=== PATIENT | male | born 1950 | race Caucasian/White ===

== ENCOUNTER 2019-02-24 07:30 | Inpatient (IN) | payer MEDICARE ==
[~2019-02-24] VITALS: Ht 177.8 cm; Wt 131.0 kg
[~2019-02-24 07:30] MED LIST: ALBU90OI INH; ASPI81CH PO; ATOR10; ATOR80 PO; Amaryl4 MG PO; CEPH500 PO; EFFIENT10 MG PO; GABA600 PO; GEMF600 PO; HYDACE5 PO; INSULANPEN SC; LEVFLO500 PO; LEVSOD100 PO; METF500 PO; METO100ER PO; METO50ER PO; Novolog100 UNIT/2 SC; Prozac20 MG PO; RAMI5 PO; SIMV40 PO; [UNRECOGNIZED DRUG - OTHER]
[2019-02-25 04:00] LABS: BASOPHILS ABSOLUTE AUTO 0.04 K/mm3 (0.00-0.23); BASOPHILS PERCENT AUTO 0 % (0-2); EOSINOPHILS ABSOLUTE AUTO 0.25 K/mm3 (0.00-0.68); EOSINOPHILS PERCENT AUTO 2 % (0-6); Hematocrit 34.2 % (37.0-53.0); Hemoglobin 10.9 g/dL (13.5-17.5); IMMATURE GRAN ABSOLUTE AUTO 0.05 K/mm3 (0.00-0.10); IMMATURE GRAN PERCENT AUTO 0 % (0-1); LYMPHOCYTES ABSOLUTE AUTO 3.29 K/mm3 (0.84-5.20); LYMPHOCYTES PERCENT AUTO 28 % (21-46); MONOCYTES ABSOLUTE AUTO 0.94 K/mm3 (0.16-1.47); MONOCYTES PERCENT AUTO 8 % (4-13); Mean Corpuscular HGB Conc 31.9 g/dL (31.5-36.5); Mean Corpuscular Volume 97 fL (80-100); NEUTROPHILS PERCENT AUTO 62 % (41-73); Platelet Count 159 K/mm3 (150-400); RDW Coefficient Variation 13.4 % (11.7-14.2); RDW Standard Deviation 47.8 fL (35.1-46.3); Red Blood Cell Count 3.52 M/mm3 (4.30-5.90); White Blood Cell Count 11.87 K/mm3 (4.00-11.30)
[2019-02-25 04:16] LABS: Anion Gap 5 mmol/L (6-16); Blood Urea Nitrogen 19 mg/dL (8-24); Bun/Creatinine Ratio 25.6 (12.0-20.0); CO2, Blood 29 mmol/L (21-32); Chloride, Blood 106 mmol/L (98-108); Creatinine, Blood 0.74 mg/dL (0.60-1.20); Glomerular Filtration Rate >60 (60-); Glucose, Blood 117 mg/dL (70-99); Sodium, Blood 140 mmol/L (136-145)
[2019-02-25] MEDS ORDERED: Percocet 5-3251 EACH PO (11:05)
[2019-02-25] MEDS ORDERED: XARELTO10 MG PO (11:06)
== END 2019-02-25 13:00 | disposition home or self-care (01) | DRG 470 ==
LOC: SURS 08:49 → PRE IP 09:00 → SURS 15:37
PROVIDERS: ADMIT Orthopaedic Surgery
PROC: 0SR903Z Replacement of Right Hip Joint with Ceramic Synthetic Substitute, Open Approach (ICD-10-PCS; principal; 2019-02-24 10:00)
DX: M16.11 Unilateral primary osteoarthritis, right hip (principal); Z68.41 Body mass index [BMI] 40.0-44.9, adult; E66.01 Morbid (severe) obesity due to excess calories; M17.0 Bilateral primary osteoarthritis of knee; E11.9 Type 2 diabetes mellitus without complications; I10 Essential (primary) hypertension; E78.5 Hyperlipidemia, unspecified; Z87.891 Personal history of nicotine dependence
CPT/HCPCS: 36415; 72170; 80048; 82947; 85025; 86850; 86900; 86901; 88300; 97110; 97116; 97161; 97530; C1776; J0171; J0690; J0735; J1815; J1817; J1885; J2270; J2370; J2405; J2704; J2765; J2795; J3010; J7120

== ENCOUNTER 2019-03-09 23:48 | Inpatient (IN) | payer MEDICARE ==
[~2019-03-09] VITALS: Ht 177.8 cm; Wt 136.5 kg
[~2019-03-09 23:48] MED LIST changes: +Percocet 5-3251 EACH PO; +XARELTO10 MG PO
[2019-03-10 01:22] LABS: BASOPHILS ABSOLUTE AUTO 0.04 K/mm3 (0.00-0.23); BASOPHILS PERCENT AUTO 0 % (0-2); EOSINOPHILS ABSOLUTE AUTO 0.07 K/mm3 (0.00-0.68); EOSINOPHILS PERCENT AUTO 0 % (0-6); Hematocrit 32.9 % (37.0-53.0); Hemoglobin 10.5 g/dL (13.5-17.5); IMMATURE GRAN ABSOLUTE AUTO 0.16 K/mm3 (0.00-0.10); IMMATURE GRAN PERCENT AUTO 1 % (0-1); LYMPHOCYTES ABSOLUTE AUTO 0.59 K/mm3 (0.84-5.20); LYMPHOCYTES PERCENT AUTO 3 % (21-46); MONOCYTES ABSOLUTE AUTO 0.55 K/mm3 (0.16-1.47); MONOCYTES PERCENT AUTO 3 % (4-13); Mean Corpuscular HGB 30.9 pg (26.0-34.0); Mean Corpuscular HGB Conc 31.9 g/dL (31.5-36.5); Mean Corpuscular Volume 97 fL (80-100); NEUTROPHILS ABSOLUTE AUTO 19.47 K/mm3 (1.96-9.15); NEUTROPHILS PERCENT AUTO 93 % (41-73); Platelet Count 429 K/mm3 (150-400); RDW Coefficient Variation 13.3 % (11.7-14.2); RDW Standard Deviation 47.5 fL (35.1-46.3); White Blood Cell Count 20.88 K/mm3 (4.00-11.30)
[2019-03-10 01:34] LABS: Alanine Aminotransfer (ALT/SGP 36 U/L (12-78); Albumin, Blood 2.9 g/dL (3.4-5.0); Albumin/Globulin Ratio 0.7 (0.8-1.8); Alk Phos 129 U/L (50-136); Anion Gap 10 mmol/L (6-16); Aspartate Aminotrans (AST/SGOT 21 U/L (12-37); Bilirubin, Total 0.6 mg/dL (0.1-1.0); Blood Urea Nitrogen 17 mg/dL (8-24); Bun/Creatinine Ratio 16.8 (12.0-20.0); CO2, Blood 24 mmol/L (21-32); Chloride, Blood 104 mmol/L (98-108); Creatinine, Blood 1.01 mg/dL (0.60-1.20); Globulin, Blood 4.3 g/dL (2.2-4.0); Glomerular Filtration Rate >60 (60-); Glucose, Blood 307 mg/dL (70-99); Potassium, Blood 4.2 mmol/L (3.5-5.5); Sodium, Blood 138 mmol/L (136-145); Total Protein, Blood 7.2 g/dL (6.4-8.2)
[2019-03-10 06:04] LABS: Source, Urine Clean Catch
[2019-03-10 06:12] LABS: Bilirubin, Urine Neg (Neg); Blood, Urine 5+ (Neg); Glucose Qualitative, Urine Neg (Neg); Ketones, Urine Neg (Neg); Leukocyte Esterase, Urine 2+ (Neg); Nitrite, Urine Neg (Neg); Protein, Urine 2+ (Neg); Urobilinogen, Urine NORM (Normal)
[2019-03-10 06:25] LABS: Appearance, Urine Hazy (Clear); Color, Urine Yellow (P-Yellow)
[2019-03-10 06:28] LABS: White Blood Cells, Urine 25-50 /hpf (0-5)
[2019-03-10 06:29] LABS: Squamous Epithelial Cells Mod /hpf (Few)
[2019-03-10 06:30] LABS: Bacteria Few /hpf
[2019-03-10 06:34] LABS: Calcium Oxalate Crystals Mod /hpf; Renal Epithelial Rare /hpf ({null, 0-Rare}); Transitional Epithelial Cells Few /hpf ({null, 0-Rare})
[2019-03-10] MEDS ORDERED: Lopressor 25 mg25 MG PO (07:22)
[2019-03-10] MEDS ORDERED: METF500C PO (07:24)
[2019-03-10 08:03] LABS: Alanine Aminotransfer (ALT/SGP 32 U/L (12-78); Albumin, Blood 2.2 g/dL (3.4-5.0); Albumin/Globulin Ratio 0.6 (0.8-1.8); Alk Phos 93 U/L (50-136); Anion Gap 8 mmol/L (6-16); Aspartate Aminotrans (AST/SGOT 29 U/L (12-37); Bilirubin, Total 0.6 mg/dL (0.1-1.0); Blood Urea Nitrogen 18 mg/dL (8-24); Bun/Creatinine Ratio 16.5 (12.0-20.0); CO2, Blood 22 mmol/L (21-32); Calcium, Blood 7.7 mg/dL (8.5-10.1); Chloride, Blood 111 mmol/L (98-108); Creatinine, Blood 1.09 mg/dL (0.60-1.20); Globulin, Blood 3.4 g/dL (2.2-4.0); Glomerular Filtration Rate >60 (60-); Glucose, Blood 196 mg/dL (70-99); Potassium, Blood 4.2 mmol/L (3.5-5.5); Sodium, Blood 141 mmol/L (136-145); Total Protein, Blood 5.6 g/dL (6.4-8.2)
[2019-03-11 05:43] LABS: Vancomycin, Trough 9.1 ug/mL (5.0-10.0)
[2019-03-11 08:27] LABS: BASOPHILS ABSOLUTE AUTO 0.06 K/mm3 (0.00-0.23); BASOPHILS PERCENT AUTO 0 % (0-2); EOSINOPHILS PERCENT AUTO 1 % (0-6); Hematocrit 30.6 % (37.0-53.0); Hemoglobin 9.7 g/dL (13.5-17.5); IMMATURE GRAN ABSOLUTE AUTO 0.08 K/mm3 (0.00-0.10); IMMATURE GRAN PERCENT AUTO 1 % (0-1); LYMPHOCYTES PERCENT AUTO 15 % (21-46); MONOCYTES ABSOLUTE AUTO 1.11 K/mm3 (0.16-1.47); MONOCYTES PERCENT AUTO 7 % (4-13); Mean Corpuscular HGB 30.7 pg (26.0-34.0); Mean Corpuscular HGB Conc 31.7 g/dL (31.5-36.5); Mean Corpuscular Volume 97 fL (80-100); Mean Platelet Volume 9.4 fL (9.1-12.4); NEUTROPHILS ABSOLUTE AUTO 11.44 K/mm3 (1.96-9.15); NEUTROPHILS PERCENT AUTO 76 % (41-73); Platelet Count 356 K/mm3 (150-400); RDW Coefficient Variation 13.4 % (11.7-14.2); RDW Standard Deviation 47.6 fL (35.1-46.3); Red Blood Cell Count 3.16 M/mm3 (4.30-5.90); White Blood Cell Count 15.09 K/mm3 (4.00-11.30)
[2019-03-11 09:09] LABS: Anion Gap 7 mmol/L (6-16); Blood Urea Nitrogen 10 mg/dL (8-24); Bun/Creatinine Ratio 15.6 (12.0-20.0); CO2, Blood 25 mmol/L (21-32); Calcium, Blood 8.9 mg/dL (8.5-10.1); Chloride, Blood 106 mmol/L (98-108); Creatinine, Blood 0.64 mg/dL (0.60-1.20); Glomerular Filtration Rate >60 (60-); Glucose, Blood 194 mg/dL (70-99); Sodium, Blood 138 mmol/L (136-145)
[2019-03-11] MEDS ORDERED: LACT PO (12:50)
[2019-03-11] MEDS ORDERED: DOXY100 PO (12:51)
[2019-06-13] MEDS ORDERED: FLUOXETINE HCL60 MG PO (12:55)
[2019-06-13] MEDS ORDERED: ALBU90OI INH (12:57)
[2019-06-13] MEDS ORDERED: TUMS500 MG PO (12:59)
[2019-06-13] MEDS ORDERED: SILD25T PO (13:00)
== END 2019-03-11 13:17 | disposition home or self-care (01) | DRG 871 ==
LOC: ER 23:48 → ICUW 03-10 03:21 → ERHOLD 03-10 03:21 → ICUW 03-10 12:45 → MEDS 03-10 21:55 → ENPENDDIS 03-11 10:42 → MEDS 03-11 13:17
PROVIDERS: Emergency Medicine; Internal Medicine; ADMIT Hospitalist
PROC: 5A1935Z Respiratory Ventilation, Less than 24 Consecutive Hours (ICD-10-PCS; principal; 2019-03-10)
DX: A41.9 Sepsis, unspecified organism (principal); R65.21 Severe sepsis with septic shock; N39.0 Urinary tract infection, site not specified; Z68.41 Body mass index [BMI] 40.0-44.9, adult; E11.65 Type 2 diabetes mellitus with hyperglycemia; E66.01 Morbid (severe) obesity due to excess calories; I25.10 Atherosclerotic heart disease of native coronary artery without angina pectoris; F32.9 Major depressive disorder, single episode, unspecified; I10 Essential (primary) hypertension; E03.9 Hypothyroidism, unspecified; Z79.4 Long term (current) use of insulin; E78.5 Hyperlipidemia, unspecified; Z95.5 Presence of coronary angioplasty implant and graft; Z87.891 Personal history of nicotine dependence; Z96.641 Presence of right artificial hip joint
CPT/HCPCS: 36415; 51798; 71045; 72193; 80048; 80053; 80202; 81001; 82947; 83605; 84145; 85025; 87040; 87086; 93005; 93010; 96361-59; 96374-59; 96375-59; 99285-25; A9270; J1650; J2543; J3010; J3370; J7030; J7050; J7120; Q9967

== ENCOUNTER 2019-06-28 06:12 | Day surgery (SDC) | payer MEDICARE ==
[~2019-06-28] VITALS: Ht 177.8 cm; Wt 131.7 kg
[~2019-06-28 06:12] MED LIST changes: +DOXY100 PO; +FLUOXETINE HCL60 MG PO; +LACT PO; +Lopressor 25 mg25 MG PO; +METF500C PO; +SILD25T PO; +TUMS500 MG PO
--- NOTE | 2019-06-28 06:55 | NUR ---
Ambulatory in Day Surgery Surgical site prepped with 2% Chlorhexidine cloth wipe. Lungs clear T/O to Auscultation. Pre-Op teaching done. Pt verbalizes understanding. Patient confirms NPO status and agrees with scheduled surgery. History, Chart, Medications and Allergies reviewed before start of procedure.
[2019-06-28] MEDS ORDERED: Mupirocin22 GM TOP (07:19)
--- NOTE | 2019-06-28 07:40 | NUR ---
PATIENT APPLIED BELLA MCBRIDE AT 0710. AND WENT TO THE RESTROOM BEFORE GOING TO THE O/R
--- NOTE | 2019-06-28 17:35 | NUR ---
SHIFT SUMMARY PT POD 0 R TKA. CHAMP WRAP R KNEE C/D/I, SCDS/POLAR PACK IN PLACE. GOOD SENSATION, CAP REFILL BRISK. UP WITH THERAPY. PAIN MANAGED PER EMAR.
[2019-06-29 06:22] LABS: BASOPHILS ABSOLUTE AUTO 0.05 K/mm3 (0.00-0.23); BASOPHILS PERCENT AUTO 0 % (0-2); EOSINOPHILS ABSOLUTE AUTO 0.62 K/mm3 (0.00-0.68); EOSINOPHILS PERCENT AUTO 6 % (0-6); Hematocrit 38.8 % (37.0-53.0); Hemoglobin 12.3 g/dL (13.5-17.5); IMMATURE GRAN ABSOLUTE AUTO 0.03 K/mm3 (0.00-0.10); IMMATURE GRAN PERCENT AUTO 0 % (0-1); LYMPHOCYTES ABSOLUTE AUTO 2.38 K/mm3 (0.84-5.20); LYMPHOCYTES PERCENT AUTO 21 % (21-46); MONOCYTES ABSOLUTE AUTO 1.09 K/mm3 (0.16-1.47); MONOCYTES PERCENT AUTO 10 % (4-13); Mean Corpuscular HGB 28.8 pg (26.0-34.0); Mean Corpuscular HGB Conc 31.7 g/dL (31.5-36.5); Mean Corpuscular Volume 91 fL (80-100); Mean Platelet Volume 8.9 fL (9.1-12.4); NEUTROPHILS PERCENT AUTO 63 % (41-73); Platelet Count 199 K/mm3 (150-400); RDW Coefficient Variation 15.3 % (11.7-14.2); Red Blood Cell Count 4.27 M/mm3 (4.30-5.90); White Blood Cell Count 11.27 K/mm3 (4.00-11.30)
[2019-06-29 06:45] LABS: Anion Gap 6 mmol/L (6-16); Blood Urea Nitrogen 20 mg/dL (8-24); Bun/Creatinine Ratio 27.1 (12.0-20.0); CO2, Blood 26 mmol/L (21-32); Calcium, Blood 8.4 mg/dL (8.5-10.1); Chloride, Blood 107 mmol/L (98-108); Creatinine, Blood 0.74 mg/dL (0.60-1.20); Glomerular Filtration Rate >60 (60-); Glucose, Blood 101 mg/dL (70-99); Potassium, Blood 3.8 mmol/L (3.5-5.5); Sodium, Blood 139 mmol/L (136-145)
[2019-06-29] MEDS ORDERED: Humalog Mi100 UNIT/5 SC (09:23)
[2019-06-29] MEDS ORDERED: XARELTO15 MG PO (09:24)
[2019-06-29] MEDS ORDERED: Bactrim Ds Tab1 EACH PO (11:34)
[2019-06-29] MEDS ORDERED: Percocet 5-3251 EACH PO (11:36)
--- NOTE | 2019-06-29 12:03 | NUR ---
SWELLING TO R THIGH SHABBIR WISDOM NOTIFIED OF THE SWELLING/FIRMNESS OF THE R THIGH. HE REPORTED HE WAS AWARE OF THE SWELLING. WILL CONTINUE WITH PLAN TO DISCHARGE HOME. DORSAL PEDIS AND TIBIAL PULSES EQUAL BILATERALLY. CAP REFIL WNL. WILL MONITOR UNTIL DISCHARGE.
--- NOTE | 2019-06-29 12:38 | NUR ---
DISCHARGE PT AND S/O PROVIDED WITH WRITTEN AND VERBAL DISCHARGE INSTRUCTIONS. THEY REPORTED UNDERSTANDING AFTER QUESTIONS WERE ANSWERED. CLEAN DRESSINGS AND PRESCRIPTIONS PROVIDED. PT EDUCATED TO MONITOR SWELLING AND REPORT ANY CONCERNING CHANGES TO DR. BLACK. PT ESCORTED OUT IN W/C BY KORY GORMAN.
== END 2019-06-29 12:40 | disposition home or self-care (01) ==
LOC: ORSCMMR 06:12 → ORD 10:15 → SURS 11:18 → ORSCMMR 06-29 12:40
PROVIDERS: Orthopaedic Surgery
PROC: 0SRC0JA Replacement of Right Knee Joint with Synthetic Substitute, Uncemented, Open Approach (ICD-10-PCS; principal; 2019-06-28 07:30)
DX: M17.11 Unilateral primary osteoarthritis, right knee (principal); I10 Essential (primary) hypertension; E11.9 Type 2 diabetes mellitus without complications; Z87.891 Personal history of nicotine dependence; E66.01 Morbid (severe) obesity due to excess calories; Z68.41 Body mass index [BMI] 40.0-44.9, adult; Z79.899 Other long term (current) drug therapy; Z79.4 Long term (current) use of insulin
CPT/HCPCS: 36415; 73560-RT; 80048; 82947; 85025; 86850; 86900; 86901; 88300; 97110; 97116; 97161; 97530; C1776; J0171; J0690; J0735; J1170; J1885; J2250; J2704; J2795; J3010; J7120

== ENCOUNTER → 2021-01-07 | Outpatient (CLI) | payer MEDICARE ==
[~2021-01-07] MED LIST changes: +Bactrim Ds Tab1 EACH PO; +Humalog Mi100 UNIT/5 SC; +Mupirocin22 GM TOP; +XARELTO15 MG PO
== END | disposition home or self-care (01) ==
LOC: LAB SHORT 13:49 → LAB 13:49
DX: A49.9 Bacterial infection, unspecified (principal)
CPT/HCPCS: 87070; 87077; 87147; 87186; 87205

== ENCOUNTER → 2021-02-11 | Outpatient (CLI) | payer MEDICARE ==
[~2021-02-11] MED LIST changes: +Aspirin EC81 MG PO; +BACTRIM DS TAB1 EAC2 PO; +LEVO750 PO; +METFORMIN HCL500 M3 PO; +NOVOLOG100 UNIT/2 SC; +PANTOPRAZOLE SO40 M2 PO; +Protonix40 MG PO; +SYNTHROID175 MC1 PO; +TAMS.4ER PO; +VISBIOME 112.51 EACH PO
== END | disposition home or self-care (01) ==
LOC: LAB SHORT 15:06 → PLD 15:06
DX: N39.0 Urinary tract infection, site not specified (principal)
CPT/HCPCS: 87077; 87086; 87186

== ENCOUNTER 2021-02-13 19:32 | Inpatient (IN) | payer MEDICARE ==
[~2021-02-13] VITALS: Ht 177.8 cm; Wt 130.7 kg
[~2021-02-13 19:32] MED LIST changes: -Aspirin EC81 MG PO; -BACTRIM DS TAB1 EAC2 PO; -LEVO750 PO; -METFORMIN HCL500 M3 PO; -NOVOLOG100 UNIT/2 SC; -PANTOPRAZOLE SO40 M2 PO; -SYNTHROID175 MC1 PO; -TAMS.4ER PO; -VISBIOME 112.51 EACH PO
[2021-02-13] MEDS ORDERED: Aspirin EC81 MG PO (19:46)
[2021-02-13] MEDS ORDERED: BACTRIM DS TAB1 EAC2 PO (19:46)
[2021-02-13 20:01] LABS: Source, Urine Clean Catch
[2021-02-13 20:05] LABS: Appearance, Urine Clear (Clear); Bilirubin, Urine Neg (Neg); Blood, Urine 5+ (Neg); Color, Urine Yellow (P-Yellow); Glucose Qualitative, Urine 4+ (Neg); Ketones, Urine 3+ (Neg); Leukocyte Esterase, Urine 1+ (Neg); Nitrite, Urine Neg (Neg); Protein, Urine 2+ (Neg); Urobilinogen, Urine 2+ (Normal); pH, Urine 6.5 (5.0-8.0)
[2021-02-13 20:06] LABS: BASOPHILS ABSOLUTE AUTO 0.03 K/mm3 (0.00-0.23); BASOPHILS PERCENT AUTO 0 % (0-2); EOSINOPHILS ABSOLUTE AUTO 0.01 K/mm3 (0.00-0.68); EOSINOPHILS PERCENT AUTO 0 % (0-6); Hematocrit 39.7 % (37.0-53.0); Hemoglobin 13.4 g/dL (13.5-17.5); IMMATURE GRAN ABSOLUTE AUTO 0.07 K/mm3 (0.00-0.10); IMMATURE GRAN PERCENT AUTO 1 % (0-1); LYMPHOCYTES ABSOLUTE AUTO 1.24 K/mm3 (0.84-5.20); LYMPHOCYTES PERCENT AUTO 10 % (21-46); MONOCYTES ABSOLUTE AUTO 0.87 K/mm3 (0.16-1.47); MONOCYTES PERCENT AUTO 7 % (4-13); Mean Corpuscular HGB 30.9 pg (26.0-34.0); Mean Corpuscular HGB Conc 33.8 g/dL (31.5-36.5); Mean Corpuscular Volume 92 fL (80-100); Mean Platelet Volume 9.4 fL (9.1-12.4); NEUTROPHILS ABSOLUTE AUTO 10.77 K/mm3 (1.96-9.15); NEUTROPHILS PERCENT AUTO 83 % (41-73); Platelet Count 172 K/mm3 (150-400); RDW Coefficient Variation 13.4 % (11.7-14.2); RDW Standard Deviation 45.6 fL (35.1-46.3); Red Blood Cell Count 4.33 M/mm3 (4.30-5.90); White Blood Cell Count 12.99 K/mm3 (4.00-11.30)
[2021-02-13 20:12] LABS: Red Blood Cells, Urine 25-50 /hpf (0-2); White Blood Cells, Urine 50-100 /hpf (0-5)
[2021-02-13 20:13] LABS: Bacteria Mod /hpf; Squamous Epithelial Cells Rare /hpf (Few)
[2021-02-13 20:15] LABS: Alanine Aminotransfer (ALT/SGP 33 U/L (12-78); Albumin, Blood 2.8 g/dL (3.4-5.0); Albumin/Globulin Ratio 0.6 (0.8-1.8); Alk Phos 91 U/L (50-136); Anion Gap 8 mmol/L (6-16); Aspartate Aminotrans (AST/SGOT 30 U/L (12-37); Bilirubin, Total 0.7 mg/dL (0.1-1.0); Blood Urea Nitrogen 13 mg/dL (8-24); Bun/Creatinine Ratio 14.6 (12.0-20.0); CO2, Blood 23 mmol/L (21-32); Calcium, Blood 8.7 mg/dL (8.5-10.1); Chloride, Blood 103 mmol/L (98-108); Creatinine, Blood 0.89 mg/dL (0.60-1.20); Globulin, Blood 4.7 g/dL (2.2-4.0); Glomerular Filtration Rate >60 (60-); Glucose, Blood 314 mg/dL (70-99); Potassium, Blood 4.2 mmol/L (3.5-5.5); Sodium, Blood 134 mmol/L (136-145); Total Protein, Blood 7.5 g/dL (6.4-8.2)
[2021-02-13] MEDS ORDERED: PANTOPRAZOLE SO40 M2 PO (21:41)
[2021-02-13] MEDS ORDERED: SYNTHROID175 MC1 PO (21:41)
[2021-02-13] MEDS ORDERED: METFORMIN HCL500 M3 PO (21:43)
[2021-02-13] MEDS ORDERED: NOVOLOG100 UNIT/2 SC (21:45)
--- NOTE | 2021-02-14 02:17 | NUR ---
PCU ADMIT/CARE ASSUMPTION PT ARRIVED FROM ED BY NEYDA AT 0100 TO PCU. PT TRANSFERED TO PCU BED FROM ED [facility] WITH A 1 PERSON ASSIT. PT A&O X4. VSS. SPO2 >90% ON RA. PT EXPERINCES SHORTNESS OF BREATH ON EXCRETION. TELE SR 76. PT DENIES CHEST PAIN. PT STATES FEELING BLOATED IN HIS STOMACH, AND IS RELIEVED WHEN RESTING. PT HAS FLUIDS RUNNING PER EMAR ORDER. PT HAS A SMALL OPEN SKIN WOUND ON RIGHT LOWER BACK WITH HOME BANDAID IN PLACE. PICTURES OF WOUND ARE IN THE PATIENTS CHART. HOME BANDAID REMOVED AND NEW BANDAID IN PLACE, SMALL AMOUNT OF CLEAR YELLOW DRAINAGE. PT ORIENTATED TO THE ROOM. PT CALL LIGHT WITHIN REACH. WILL CONTINUE TO MONITOR AND PROVIDE CARE.
[2021-02-14 04:13] LABS: Hematocrit 34.8 % (37.0-53.0); Hemoglobin 11.5 g/dL (13.5-17.5); Mean Corpuscular HGB 30.5 pg (26.0-34.0); Mean Corpuscular Volume 92 fL (80-100); Mean Platelet Volume 9.3 fL (9.1-12.4); Platelet Count 159 K/mm3 (150-400); RDW Coefficient Variation 13.3 % (11.7-14.2); RDW Standard Deviation 45.3 fL (35.1-46.3); Red Blood Cell Count 3.77 M/mm3 (4.30-5.90); White Blood Cell Count 9.83 K/mm3 (4.00-11.30)
[2021-02-14 04:32] LABS: Anion Gap 4 mmol/L (6-16); Blood Urea Nitrogen 15 mg/dL (8-24); Bun/Creatinine Ratio 15.9 (12.0-20.0); CO2, Blood 27 mmol/L (21-32); Calcium, Blood 8.1 mg/dL (8.5-10.1); Chloride, Blood 104 mmol/L (98-108); Creatinine, Blood 0.94 mg/dL (0.60-1.20); Glomerular Filtration Rate >60 (60-); Glucose, Blood 224 mg/dL (70-99); Potassium, Blood 3.6 mmol/L (3.5-5.5); Sodium, Blood 135 mmol/L (136-145)
--- NOTE | 2021-02-14 05:44 | NUR ---
SHIFT SUMMARY O&A X4. VSS. SPO2 >90% ON RA. TELE SR 60S. NO ACUTE CHANGES THIS SHIFT. CALL LIGHT WITHIN REACH. WILL CONTINUE TO MONITOR AND PROVIDE CARE UNTIL HAND OFF WITH DAY SHIFT.
--- NOTE | 2021-02-14 08:47 | NUR ---
TREMORS, TEMP 98.0. C/O DIFFICULTY BREATHING.. SPO2 89% ON ROOM AIR. GIVEN OXYGEN 2 L/MIN STARTED, SPO2 IMPROVED TO 95%. DR JONES HERE.
--- NOTE | 2021-02-14 08:48 | NUR ---
LUNG SOUNDS CLEAR, NO WHEEZING, NO CRACKLES BUT PT STATES THAT HE THINKS ALL THE IV FLUIDS HAVE MADE HIS BREATHING DIFFICULT
--- NOTE | 2021-02-14 09:23 | NUR ---
RIGORS have now stopped, and the pt is lying on his left side, eyes closed, and respirations even and unlabored. IVF reduced per orders to 100cc/hour from 150cc/hour. Spo2 95% on 2 l/min at this time. He appears to be resting comfortably.
--- NOTE | 2021-02-14 09:49 | NUR ---
Call to Dr. Fischer to report lactic acid. Continue IV fluids at 100cc/hour.
--- NOTE | 2021-02-14 11:50 | NUR ---
Pt's arrived during renal ultrasound. UPdate on pt condition and current plan of treatment discussed with her and the pt. Covid swab sent. PT is drinking oral fluids, asking for more. IV fluids are infusing. He has no visible tremors, rigor, and no dyspnea.
[2021-02-14 12:25] LABS: SARS-Cov-2 (COVID-19) PCR, MMC NEGATIVE (NEGATIVE)
--- NOTE | 2021-02-14 12:28 | NUR ---
NOTED COVID TEST NEGATIVE
--- NOTE | 2021-02-14 13:56 | NUR ---
Lying on his left side, pt appears to be sleeping, respirations are even and unlabored, regular. Sinus rhythm by tele monitor, 89 bpm.
--- NOTE | 2021-02-14 15:17 | NUR ---
Vital signs taken. Blood pressure stable, but lower than before. Temperature elevated 101; pt is still sleeping on left side, awakens easily, and has no complaints or requests. RR 24, 95% spo2 on 2 l/min O2 delivery. IVF still infusing as ordered at 100cc/hour. Rocephin hung also at this time. will recheck temperature in about an hour.
--- NOTE | 2021-02-14 16:09 | NUR ---
Pt called, stated that he had accidentally peed on himself while trying to use the urinal after awakening from "deep sleep". Assisted to chair. He appears to use a lot of effort to stand and pivot to chair, shortness of breath noted with the activity. Pt did simple sponge bath, RN changed gown and bed linens, and pt was assisted to sit back on edge of bed to use the urinal before lying down. Temperature is now 100.0.
[2021-02-15 04:02] LABS: BASOPHILS ABSOLUTE AUTO 0.04 K/mm3 (0.00-0.23); BASOPHILS PERCENT AUTO 1 % (0-2); EOSINOPHILS ABSOLUTE AUTO 0.04 K/mm3 (0.00-0.68); EOSINOPHILS PERCENT AUTO 1 % (0-6); Hematocrit 36.3 % (37.0-53.0); Hemoglobin 12.2 g/dL (13.5-17.5); IMMATURE GRAN ABSOLUTE AUTO 0.04 K/mm3 (0.00-0.10); IMMATURE GRAN PERCENT AUTO 1 % (0-1); LYMPHOCYTES ABSOLUTE AUTO 1.66 K/mm3 (0.84-5.20); LYMPHOCYTES PERCENT AUTO 19 % (21-46); MONOCYTES ABSOLUTE AUTO 0.81 K/mm3 (0.16-1.47); MONOCYTES PERCENT AUTO 9 % (4-13); Mean Corpuscular HGB 31.3 pg (26.0-34.0); Mean Corpuscular HGB Conc 33.6 g/dL (31.5-36.5); Mean Corpuscular Volume 93 fL (80-100); Mean Platelet Volume 9.6 fL (9.1-12.4); NEUTROPHILS ABSOLUTE AUTO 6.21 K/mm3 (1.96-9.15); NEUTROPHILS PERCENT AUTO 70 % (41-73); Platelet Count 165 K/mm3 (150-400); RDW Coefficient Variation 13.6 % (11.7-14.2); RDW Standard Deviation 46.2 fL (35.1-46.3)
[2021-02-15 04:22] LABS: Albumin, Blood 2.5 g/dL (3.4-5.0); Anion Gap 7 mmol/L (6-16); Blood Urea Nitrogen 13 mg/dL (8-24); Bun/Creatinine Ratio 14.3 (12.0-20.0); CO2, Blood 25 mmol/L (21-32); Calcium, Blood 8.1 mg/dL (8.5-10.1); Chloride, Blood 103 mmol/L (98-108); Creatinine, Blood 0.91 mg/dL (0.60-1.20); Glomerular Filtration Rate >60 (60-); Glucose, Blood 136 mg/dL (70-99); Phosphorus, Blood 2.1 mg/dL (2.5-4.9); Potassium, Blood 3.6 mmol/L (3.5-5.5); Sodium, Blood 135 mmol/L (136-145)
--- NOTE | 2021-02-15 06:31 | NUR ---
SHIFT SUMMARY PT AOX4, FEBRILE AT START OF SHIFT, TREATED WITH APAP PER ORDER, RESOLVED. VSS OTHERWISE STABLE T/O NIGHT. DYSPNEIC WITH EXERTION, BUT SPO2 GREATER THAN 92% ON RA. PT UNABLE TO USE URINAL INDEPENDENTLY W/O SOILING SELF/FLOOR. HAS DONE WELL WHEN ASSISTED UP TO BEDSIDE COMMODE. NS CONTINUING PER ORDERS AT 100 MLS/HR FOR X1 BAG.
--- NOTE | 2021-02-15 08:37 | NUR ---
Dr Fischer here, spoke with her about pt's trace edema pretibial and ankles. IVF to stop after this bag. Pt states he feels better than yesterday.
--- NOTE | 2021-02-15 10:09 | NUR ---
Telephone report given to Bao James RN at this time. Pt will be transferring to room 328 on medical floor, with telemetry monitoring.
--- NOTE | 2021-02-15 11:02 | NUR ---
Recived report from pcu nurse, pt arrived, assessed and documented, called with new room #, sitting in room now having just completed an ultra sound in rm, call light in reach, iv flushed will continue to monitor and treat until share bsr with noc nurse and pt
--- NOTE | 2021-02-15 16:45 | NUR ---
Echocardiogram performed.
--- NOTE | 2021-02-15 17:40 | NUR ---
arrived from pcu, a+o, receives 25u insulin before every meal, verified with previous nurse and pt before gave first dose, call light in reach, states he is feeling much better, rm air, saline locked, family in for visit, no acute changes noted during shift, will continue to monitor and treat until share bsr with noc nurse and pt
--- NOTE | 2021-02-16 04:35 | NUR ---
SHIFT SUMMARY A/O, ABLE TO MAKE NEEDS KNOWN. COOPERATIVE WITH CARE. CALLS AND ANSWERS QUESTIONS APPROPRIATELY. C/O PAIN/DISCOMFORT TO HEAD RATED 7-8/10; MEDICATED PER EMAR. NEW OT ORDER FROM ON-CALL PROIVDER FOR BENADRYL TO AIDE WITH SLEEP. MINIMAL REST NOTED THIS SHIFT. UP FREQUENTLY TO VOID WELL A COUPLE OF INCONTINENT VOIDS. NOTABLY SWEATING AROUND 0400 AFTER INCONTINENCE. STATES FEELS MUCH BETTER THIS MORNING. VSS/AFEBRILE. TELE RUNNING SR IN 70s PER RETREAD TECHNICIAN. CONTINUE WITH CURRENT PLAN OF CARE. REPORT TO ONCOMING RN.
--- NOTE | 2021-02-16 17:44 | NUR ---
SHIFT SUMMARY PT A&OX4, ABLE TO MAKE NEEDS KNOWN. PLEASANT AND COOPERATIVE TO CARE. NO ACUTE CHANGES NOTED TO PT THIS SHIFT. NO C/O PAIN OR ANY DISCOMFORT. DENIES CP / SOB, OR N&V. PT ON IV ABX ORDERED, NO ASE NOTED. PT RESTING IN ROOM AT THIS TIME. BED AT LOWEST POSITION. CALL LIGHT WITHIN REACH.
--- NOTE | 2021-02-17 04:19 | NUR ---
SHIFT SUMMARY A/O, ABLE TO MAKE NEEDS KNOWN. COOPERATIVE WITH CARE. CALLS AND ANSWERS QUESTIONS APPROPRIATELY. NO C/O PAIN/DISCOMFORT. APPEARED TO REST MUCH OF THE NIGHT. TELE RUNNING SR IN 80s. NO ACUTE CHANGES NOTED OVERNIGHT. BED REMAINED IN LOWEST POSITION. CALL LIGHT AND BELONGINGS WITHIN REACH. CONTINUE WITH CURRENT PLAN OF CARE. REPORT TO ONCOMING RN.
[2021-02-17] MEDS ORDERED: TAMS.4ER PO (11:37)
[2021-02-17] MEDS ORDERED: VISBIOME 112.51 EACH PO (11:38)
[2021-02-17] MEDS ORDERED: LEVO750 PO (11:38)
--- NOTE | 2021-02-17 12:51 | NUR ---
DISCHARGE SUMMARY PT DISCHARGE THIS SHIFT AT APPROXIMATELY 1245. PT VERBALIZED UNDERSTANDING OF DISCHARGE ORDERS. DISCHARGE PACKET GIVEN TO PT UPON DISCHARGE. NO COMPLAINTS OR ANY ISSUES NOTED TO PT PRIOR TO D/C, DENIES ANY PAIN OR ANY DISCOMFORT. PT A&OX4, ABLE TO MAKE NEEDS KNOWN. PLEASANT AND COOPERATIVE T/O CARE. DISCONTINUED PT's TELE AND IV LINE PRIOR TO DISCHARGE.
== END 2021-02-17 12:32 | disposition home or self-care (01) | DRG 872 ==
LOC: ER 19:32 → PCU 23:50 → MEDS 02-15 10:20
PROVIDERS: Emergency Medicine; Family Medicine; ADMIT Internal Medicine
DX: A41.51 Sepsis due to Escherichia coli [E. coli] (principal); N39.0 Urinary tract infection, site not specified; E87.1 Hypo-osmolality and hyponatremia; Z68.41 Body mass index [BMI] 40.0-44.9, adult; E87.2 Acidosis; Z20.822 Contact with and (suspected) exposure to COVID-19; R65.20 Severe sepsis without septic shock; I10 Essential (primary) hypertension; F17.210 Nicotine dependence, cigarettes, uncomplicated; I25.10 Atherosclerotic heart disease of native coronary artery without angina pectoris; F32.9 Major depressive disorder, single episode, unspecified; E03.9 Hypothyroidism, unspecified; E66.01 Morbid (severe) obesity due to excess calories; E11.65 Type 2 diabetes mellitus with hyperglycemia; K21.9 Gastro-esophageal reflux disease without esophagitis; D64.9 Anemia, unspecified; E78.5 Hyperlipidemia, unspecified; Z95.5 Presence of coronary angioplasty implant and graft; Z96.641 Presence of right artificial hip joint; Z96.651 Presence of right artificial knee joint; Z90.49 Acquired absence of other specified parts of digestive tract; Z98.890 Other specified postprocedural states; Z88.1 Allergy status to other antibiotic agents; Z88.8 Allergy status to other drugs, medicaments and biological substances; Z79.4 Long term (current) use of insulin; Z79.82 Long term (current) use of aspirin; Z79.899 Other long term (current) drug therapy
CPT/HCPCS: 36415; 71045; 76770; 80048; 80053; 80069; 81001; 82272; 82947; 83605; 85025; 85027; 86850; 86900; 86901; 87040; 87077; 87086; 87186; 93306; 94760; 96365; 96374; 96375; 99283-25; 99285-25; A9270; C9113; J0696; J1650; J1815; J1885; J7030; J7120; U0004

== ENCOUNTER → 2021-03-05 | Outpatient (CLI) | payer MEDICARE ==
[~2021-03-05] MED LIST changes: +Aspirin EC81 MG PO; +BACTRIM DS TAB1 EAC2 PO; +LEVO750 PO; +METFORMIN HCL500 M3 PO; +NOVOLOG100 UNIT/2 SC; +PANTOPRAZOLE SO40 M2 PO; +SYNTHROID175 MC1 PO; +TAMS.4ER PO; +VISBIOME 112.51 EACH PO
[2021-03-05 20:19] LABS: Bacteria Few /hpf; Red Blood Cells, Urine Not Seen /hpf (0-2); Squamous Epithelial Cells Few /hpf (Few); White Blood Cells, Urine 0-2 /hpf (0-5)
== END | disposition home or self-care (01) ==
LOC: LAB 12:15 → LAB SHORT 12:15
PROVIDERS: Physician Assistant
DX: R31.9 Hematuria, unspecified (principal)
CPT/HCPCS: 81015; 87077; 87086; 87186

== ENCOUNTER → 2021-09-30 | Outpatient (CLI) | payer MEDICARE | END | disposition home or self-care (01) | LOC: LAB SHORT 16:00 | DX: N39.0 Urinary tract infection, site not specified (principal) | CPT/HCPCS: 87086 ==

== ENCOUNTER 2022-06-24 17:49 | Emergency (ER) | payer MEDICARE ==
[~2022-06-24] VITALS: Ht 177.8 cm; Wt 133.4 kg
[2022-06-24] MEDS ORDERED: CYCL10 PO (20:23)
== END 2022-06-24 21:35 | disposition home or self-care (01) ==
LOC: ER 17:49
DX: S09.90XA Unspecified injury of head, initial encounter (principal); M54.50 Low back pain, unspecified; W10.9XXA Fall (on) (from) unspecified stairs and steps, initial encounter; E11.9 Type 2 diabetes mellitus without complications; I10 Essential (primary) hypertension; I25.10 Atherosclerotic heart disease of native coronary artery without angina pectoris; E78.5 Hyperlipidemia, unspecified; F17.200 Nicotine dependence, unspecified, uncomplicated; Z88.8 Allergy status to other drugs, medicaments and biological substances; Z79.899 Other long term (current) drug therapy; Z79.4 Long term (current) use of insulin; Z79.82 Long term (current) use of aspirin
CPT/HCPCS: 70450; 72040; 72100; 99284-25; A9270

== ENCOUNTER → 2022-07-07 | Outpatient (CLI) | payer MEDICARE ==
[~2022-07-07] MED LIST changes: +CYCL10 PO
== END | disposition home or self-care (01) ==
LOC: LAB 14:00 → LAB SHORT 14:00
DX: N39.0 Urinary tract infection, site not specified (principal)
CPT/HCPCS: 87086

== ENCOUNTER 2022-10-07 11:52 | Inpatient (IN) | payer MEDICARE ==
[~2022-10-07] VITALS: Ht 177.8 cm; Wt 128.5 kg
[2022-10-07 12:15] LABS: BASOPHILS ABSOLUTE AUTO 0.04 K/mm3 (0.00-0.23); BASOPHILS PERCENT AUTO 0 % (0-2); EOSINOPHILS ABSOLUTE AUTO 0.05 K/mm3 (0.00-0.68); EOSINOPHILS PERCENT AUTO 0 % (0-6); Hematocrit 44.1 % (37.0-53.0); Hemoglobin 15.2 g/dL (13.5-17.5); IMMATURE GRAN ABSOLUTE AUTO 0.05 K/mm3 (0.00-0.10); IMMATURE GRAN PERCENT AUTO 0 % (0-1); LYMPHOCYTES ABSOLUTE AUTO 1.74 K/mm3 (0.84-5.20); LYMPHOCYTES PERCENT AUTO 15 % (21-46); MONOCYTES ABSOLUTE AUTO 0.63 K/mm3 (0.16-1.47); MONOCYTES PERCENT AUTO 5 % (4-13); Mean Corpuscular HGB 31.3 pg (26.0-34.0); Mean Corpuscular HGB Conc 34.5 g/dL (31.5-36.5); Mean Corpuscular Volume 91 fL (80-100); Mean Platelet Volume 9.5 fL (9.1-12.4); NEUTROPHILS ABSOLUTE AUTO 9.23 K/mm3 (1.96-9.15); NEUTROPHILS PERCENT AUTO 79 % (41-73); Platelet Count 216 K/mm3 (150-400); RDW Standard Deviation 43.3 fL (35.1-46.3); Red Blood Cell Count 4.85 M/mm3 (4.30-5.90); White Blood Cell Count 11.74 K/mm3 (4.00-11.30)
[2022-10-07 13:08] LABS: Albumin, Blood 3.5 g/dL (3.4-5.0); Albumin/Globulin Ratio 0.9 (0.8-1.8); Bilirubin, Total 0.9 mg/dL (0.1-1.0); Bun/Creatinine Ratio 19.8 (12.0-20.0); Calcium, Blood 9.6 mg/dL (8.5-10.1); Creatinine, Blood 0.76 mg/dL (0.60-1.20); Globulin, Blood 3.9 g/dL (2.2-4.0); Potassium, Blood 4.1 mmol/L (3.5-5.5); Total Protein, Blood 7.4 g/dL (6.4-8.2)
[2022-10-07 16:28] LABS: International Normalized Ratio 1.09; Prothrombin Time Results 11.4 Sec (9.7-11.5)
[2022-10-07 16:33] LABS: Anti-Xa UFH, PHA Monitoring <0.10 IU/mL
[2022-10-07] MEDS ORDERED: LEVSOD100 PO (17:18)
--- NOTE | 2022-10-07 18:30 | NUR ---
SHIFT SUMMARY PT ARRIVED TO PCU 2 FROM THE ER @ APPROX 1505. PT A/O X4, PLEASANT AND COOPERATIVE. PT AMBULATORY TO BATHROOM AND ABLE TO TRANSFER TO HOSPITAL BED WITH NO ASSISTANCE. PT O2 SAT >92% ON RA. LUNGS CLEAR T/O. BT+. DR PHAM SAW THE PT ONCE HE ARRIVED TO PCU. PLAN FOR PT TO BE NPO AT MIDNIGHT AND HAVE ANGIO PERFORMED TOMORROW. PER DR PHAM, HE BELIEVES ONE OF THE PATIENT'S TWO STENTS HAS FAILED. PT STARTED ON HEPARIN DRIP AT 15UNITS, INFUSING NOW. PT C/O CONSTANT CP THAT IS 3/[address] SINCE IT BEGAN 3 DAYS AGO. NO RELIEF WITH PRN ANALGESICS. WILL CONTINUE TO MONITOR AND REPORT TO WATER METER INSTALLER RN.
--- NOTE | 2022-10-07 19:20 | NUR ---
SHIFT SUMMARY PT PLEASANT AND COOPERATIVE. A/O X4. SPEAKING SOFTLY BUT CLEARLY. PT VISION STILL REMAINS ALTERED. PT APPEARED TO BE TRACKING BETTER WITH THINGS ON HIS RIGHT SIDE. LEFT ARM REMAINS FLACCID AND PT STATES LEFT LEG HAS NUMBNESS AND TINGLING BUT SO FAR SENSATION AND MOVEMENT INTACT AND EQUAL IN BLE. PT C/O HEADACHE AND CP THROUGHOUT THE SHIFT AND WAS MEDICATED WITH PRN ANALGESICS THAT GAVE HIM SOME RELIEF. PT DENIES ANY ACUTE CHANGE IN PAIN AND AGREES IT IS RELATED TO THE CPR. PT DENIES ANY SOB. REMAINS ON 3L VIA NC AND O2 SAT >92%. PT IS SR IN THE 90'S, BP REMAINS ELEVATED WITH SYSTOLIC IN THE 160'S AND WAS CONSISTENT THROUGHOUT THE SHIFT. PT WORKED WITH PT AND OT TODAY AND WAS IN DIALYSIS FROM AROUND 0830 TO 1145. PT C/O FATIGUE THROUGHOUT THE SHIFT AFTER RETURNING FROM DIALYSIS. PT RAHMAN PATENT AND DRAINING TO GRAVITY. REPORT GIVEN TO PAINT DIPPER RN.
[2022-10-08 05:07] LABS: Hematocrit 42.3 % (37.0-53.0); Hemoglobin 14.4 g/dL (13.5-17.5); Mean Corpuscular HGB 31.5 pg (26.0-34.0); Mean Corpuscular Volume 93 fL (80-100); Mean Platelet Volume 9.4 fL (9.1-12.4); Platelet Count 214 K/mm3 (150-400); RDW Coefficient Variation 13.1 % (11.7-14.2); RDW Standard Deviation 44.4 fL (35.1-46.3); Red Blood Cell Count 4.57 M/mm3 (4.30-5.90); White Blood Cell Count 11.11 K/mm3 (4.00-11.30)
--- NOTE | 2022-10-08 05:15 | NUR ---
SHIFT SUMMARY NO ACUTE CHANGES NOTED THROUGH THE NIGHT, PT HAS BEEN RESTING QUIETLY, VSS, NSR, STATES CP "FEELS A LITTLE BETTER", ON RA, RESP UNLABORED. HEP GTT INFUSING PER EMAR @ 15 UNITS/KG/HR, PT IS A STAND BY ASSIST TO THE BATHROOM, VOIDING WNL, NPO SINCE MIDNIGHT AND AWAITING PROCEDURE. CALL LIGHT IN REACH, WCTM & REPORT TO ONCOMING RN.
[2022-10-08 05:46] LABS: Magnesium, Blood 1.7 mg/dL (1.6-2.4)
[2022-10-08 05:49] LABS: Bun/Creatinine Ratio 13.7 (12.0-20.0); Calcium, Blood 9.2 mg/dL (8.5-10.1); Creatinine, Blood 0.73 mg/dL (0.60-1.20); Potassium, Blood 3.9 mmol/L (3.5-5.5)
--- NOTE | 2022-10-08 11:14 | NUR ---
CARE NOTE PT ARRIVED FROM [facility] APPROX. 1022, HE WAS ALERT AND ORIENTED X 4, BP AND HR STABLE. L RADIAL ACCESS SITE W/ TR BAND IN PLACE, 13 ML AIR IN BAND, NO BLEEDING NOTED, STRONG RADIAL PULSES NOTED. PT DENIES CP AT THIS TIME, IS AT BEDSIDE. HE HAS BEEN UP TO BATHROOM A ASSIST TO MANAGE LINES. ROOFING TILE SORTER IN ROOM AT THIS TIME.
[2022-10-08 13:19] LABS: SARS-Cov-2 (COVID-19) PCR, MMC NEGATIVE (NEGATIVE)
--- NOTE | 2022-10-08 16:50 | NUR ---
CARE NOTE REPORT GIVEN TO BOLA CHANG AT [facility], PT TO GO TO ROOM 4429 PER REPORT. VSS, HEPARIN DRIP INFUSING PER EMAR ORDERS. WILL CONTINUE TO MONITOR UNTIL PT TRANSFERS.
--- NOTE | 2022-10-08 17:04 | NUR ---
SHIFT SUMMARY PT IS ALERT AND ORIENTED X4, HE IS ABLE TO MAKE HIS NEEDS KNOWN. HR AND BP STABLE. TR BAND DEFLATED THIS AFTERNOON PER ORDERS/PROTOCOL AT APPROX. 1400 W/ NO APPARENT SIGNS OF BLEEDING, NO HEMATOMA NOTED, RADIAL PULSES STRONG. HE HAS AMBULATED SBA TO MANAGE LINES 2X SINCE ANGIO. HE HAS REPORTED MINIMAL CHEST PAIN RATED 1/10, HE HAS DENIED FEELINGS OF DIZZINESS/LIGHTHEADEDNESS. HEPARIN DRIP INFUSING PER EMAR ORDERS IN RIGHT AC PER EMAR ORDERS. ANGIO ACCESS SITE WAS LEFT RADIAL SITE. TRANSPORTATION CAME FOR PT APPROX. 1730, VSS. THIS NURSE NOTIFIED MONCHO PT OF TRANSFER. PT LEFT PCU VIA GURNEY AT APPROX. 1740.
== END 2022-10-08 17:37 | disposition short-term general hospital (02) | DRG 281 ==
LOC: ER 11:52 → PCU 14:14
PROVIDERS: Emergency Medicine; Internal Medicine Cardiovascular Disease; Nurse Practitioner Acute Care; ADMIT Internal Medicine
PROC: 4A023N7 Measurement of Cardiac Sampling and Pressure, Left Heart, Percutaneous Approach (ICD-10-PCS; principal; 2022-10-08)
PROC: B211YZZ Fluoroscopy of Multiple Coronary Arteries using Other Contrast (ICD-10-PCS; 2022-10-08)
PROC: B215YZZ Fluoroscopy of Left Heart using Other Contrast (ICD-10-PCS; 2022-10-08)
PROC: B240ZZ3 Ultrasonography of Single Coronary Artery, Intravascular (ICD-10-PCS; 2022-10-08)
DX: I21.4 Non-ST elevation (NSTEMI) myocardial infarction (principal); T82.855A Stenosis of coronary artery stent, initial encounter; I25.10 Atherosclerotic heart disease of native coronary artery without angina pectoris; R94.31 Abnormal electrocardiogram [ECG] [EKG]; I70.202 Unspecified atherosclerosis of native arteries of extremities, left leg; E11.9 Type 2 diabetes mellitus without complications; I10 Essential (primary) hypertension; F32.A Depression, unspecified; E03.9 Hypothyroidism, unspecified; N40.0 Benign prostatic hyperplasia without lower urinary tract symptoms; K21.9 Gastro-esophageal reflux disease without esophagitis; F17.210 Nicotine dependence, cigarettes, uncomplicated; E66.01 Morbid (severe) obesity due to excess calories; E78.5 Hyperlipidemia, unspecified; Z96.641 Presence of right artificial hip joint; Z96.651 Presence of right artificial knee joint; Z96.611 Presence of right artificial shoulder joint; F10.11 Alcohol abuse, in remission; Z20.822 Contact with and (suspected) exposure to COVID-19; Z91.041 Radiographic dye allergy status; Z95.5 Presence of coronary angioplasty implant and graft; Z98.890 Other specified postprocedural states; Z90.49 Acquired absence of other specified parts of digestive tract; Z68.37 Body mass index [BMI] 37.0-37.9, adult; Z79.899 Other long term (current) drug therapy; Z79.51 Long term (current) use of inhaled steroids; Z79.82 Long term (current) use of aspirin; Z79.4 Long term (current) use of insulin
CPT/HCPCS: 36415; 71046; 76937; 80048; 80053; 82947; 83735; 83880; 84484; 85025; 85027; 85520; 85610; 85730; 86850; 86900; 86901; 93005; 93010; 93458; 99152; 99153; 99285-25; A9270; C1769; C1894; C8929; J1644; J1815; J2250; J3010; J3475; J7030; J7040; J7050; Q9957; Q9967; U0004

== ENCOUNTER → 2023-11-11 | Outpatient (CLI) | payer MEDICARE | LOC: LAB SHORT 11:48 | DX: N39.0 Urinary tract infection, site not specified (principal) | CPT/HCPCS: 87086 ==